=== PATIENT | male | born 1975 | race Caucasian/White ===

== ENCOUNTER → 2016-11-26 | Outpatient (CLI) | payer BC ==
[2016-11-26 17:55] LABS: BLOOD UREA NITROGEN 13 mg/dl (7-18); CREATININE 0.99 mg/dl (0.60-1.40); GLUCOSE 108 mg/dl (70-99)
[2016-11-26 17:56] LABS: BUN/CREATININE RATIO 12.9 (10-20); CALCIUM 9.2 mg/dl (8.5-10.1); CARBON DIOXIDE 28 mmol/L (21-32); CHLORIDE 105 mmol/L (98-107); SODIUM 140 mmol/L (136-145)
[2016-11-26 17:59] LABS: CHOLESTEROL 215 mg/dl (0-200); CHOLESTEROL/HDL RATIO 4.5; HDL CHOLESTEROL 48 mg/dl; LDL CHOLESTEROL CALCULATED 144 mg/dl; TRIGLYCERIDES 113 mg/dl (0-150); VERY LOW DENSITY LIPOPROT CALC 23 mg/dl
== END | disposition home or self-care (01) ==
LOC: C.LABPBG 11:26
PROVIDERS: ATTEND Physician Assistant
DX: Z00.00 Encounter for general adult medical examination without abnormal findings (principal)